=== PATIENT | female | born 1935 | race Caucasian/White ===

== ENCOUNTER → 2016-09-16 | Day surgery (SDC) | payer MEDICARE, OTHER ==
[~2016-09-16] VITALS: Ht 160 cm; Wt 60.0 kg
[~2016-09-16] MED LIST: ALENDRONATE SOD70 MG PO; CALCIUM500 MG PO; DAPSONE100 MG PO; FERGON325 M1 PO; MELATONIN5 M2 PO; MIRALAX17 GM PO; NORCO 5-325 TA1 EACH PO; NORVASC5 MG PO; PRILOSEC20 MG PO; PROAIR HFA8.5 GM INH; TOPROL XL25 MG PO; VITAMIN B-12500 MCG PO; VITAMIN D1000 UNIT PO; WELLBUTRIN XL150 M1 PO
--- NOTE | ~2016-09-16 | OR ---
PATIENT'S NAME: [facility]NEY [facility] AGE: 81 Y [address] 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 PROCEDURE: Exploration of left brachiocephalic fistula and ligation of all side branches and superficialization of the fistula. CLINICAL ANALYST: MARITZA Nguyen. ANESTHESIA: General. ESTIMATED BLOOD LOSS: 20 mL. OPERATIVE FINDINGS: Fistula darkened skin with much more potent thrill. DESCRIPTION OF PROCEDURE: The patient was brought to the operating room, placed supine on the operative table, placed under general anesthesia, and prepped and draped in a sterile manner. Preoperative time-out was performed. The patient received preoperative antibiotics. We first made an incision along the proximal portion of the AV fistula along the length of the basilic vein. We dissected down the fascia, incised the fascia in a longitudinal manner. We saw that there was a branch that was transmitting flow from the anastomosis down to the basilic vein. We placed a clip on that branch. We then proceeded to make a counter incision along the path of the cephalic vein, dissected down to the fascia, incised the fascia in a longitudinal manner. Dissected out the cephalic vein in a 360-degree fashion and ligated large side branches until the vein was free. We then reapproximated the deep layers with 2-0 and 3-0 Vicryl. Skin was closed with running 4-0 Monocryl and covered with Steri-Strips. The fistula was much stronger now with the side branches ligated and easily more palpable under the skin. The patient tolerated the procedure well and transferred to recovery room and home later that day. ADI MORRIS MD PATIENT'S NAME: RODNEY [facility] AGE: 81 Y [address] ROOM: [place], [place] [address] LOCATION: [facility] [place] ADMIT DATE: 09/16/2016 OR/Procedure Report DISCHARGE DATE: FAMILY PHYSICIAN: Chris Blanchard MD ATTENDING PHYSICIAN: ADI MORRIS/albinal /[id number] d: 09/16/162048 t: 09/21/16 1200, OPERATIVE SUMMARY
[2016-09-16 09:17] LABS: BASOPHIL # 0.1 K/uL (0.0-0.2); BASOPHIL % 0.8 %; EOSINOPHIL # 0.3 K/uL (0.0-0.5); EOSINOPHIL % 4.3 %; HEMATOCRIT 35.6 % (30.0-46.0); IMMATURE GRANULOCYTE % 0.2 %; LYMPHOCYTE # 2.4 K/uL (0.8-4.0); LYMPHOCYTE % 36.9 %; MCH 33.2 pg (27.0-34.0); MCHC 33.7 gm/dL (32.0-36.5); MCV 98.6 fl (83.0-98.0); MONOCYTE # 0.6 K/uL (0.0-1.0); MONOCYTE % 9.6 %; NEUTROPHIL # (ANC) 3.1 K/uL (1.8-7.8); NEUTROPHIL % 48.2 %; NRBC % 0 /100WBC (0-0.00); RBC 3.61 M/uL (3.00-5.00); RDW-CV 13.1 % (11.9-14.6); WBC 6.5 K/uL (4.0-11.0)
[2016-09-16 09:19] LABS: PLATELET COUNT 187 K/uL (150-450)
[2016-09-16 09:39] LABS: ALBUMIN 3.7 gm/dL (3.5-5.0); ANION GAP 14.5 (10.0-19.0); CALCIUM 8.7 mg/dL (8.5-10.5); POTASSIUM 4.5 mMol/L (3.7-5.1); TOTAL PROTEIN 6.7 g/dL (6.0-8.4)
[2016-09-16 09:40] LABS: CREATININE 4.3 mg/dL (0.5-1.1); TOTAL BILIRUBIN 0.7 mg/dL (0.0-1.5)
== END | disposition disaster alternative care site (69) ==
LOC: GPOC 09-11 14:00 → GSDC 08:30
PROVIDERS: Surgery Vascular Surgery
PROC: 03WY0JZ Revision of Synthetic Substitute in Upper Artery, Open Approach (ICD-10-PCS; principal; 2016-09-16)
DX: T82.598A Other mechanical complication of other cardiac and vascular devices and implants, initial encounter (principal); N18.6 End stage renal disease; D64.9 Anemia, unspecified; F32.9 Major depressive disorder, single episode, unspecified; K21.9 Gastro-esophageal reflux disease without esophagitis; Z79.899 Other long term (current) drug therapy
CPT/HCPCS: J0690; J1100; J1644; J2405; J2720; J7120

== ENCOUNTER → 2016-11-24 | Outpatient (CLI) | payer MEDICARE, OTHER | END | disposition disaster alternative care site (69) | LOC: GRAD 09:09 | PROC: 05PY33Z Removal of Infusion Device from Upper Vein, Percutaneous Approach (ICD-10-PCS; principal; 2016-11-24) | DX: Z45.2 Encounter for adjustment and management of vascular access device (principal) ==